=== PATIENT | male | born 1945 | race Caucasian/White ===

== ENCOUNTER 2025-02-21 09:34 | Outpatient (AMB) | payer MEDICARE, SELFPAY ==
--- OUTSIDE RECORDS SUMMARY | 2020-08-24 04:00 | XMS_ITS | Continuity of Care Document ---
Author Name [facility] Organization [facility] Care Team Providers Care Catering Sales Manager Name Role Phone [facility] Unavailable Unavailable Immunizations Combined list of available immunizations from the Department of Defense and Veterans Affairs facilities. Immunization Series Date Given Administered By Site Reaction Lot Number CVX Code Drug Office Inspector Status Comments Source COVID-19 (MODERNA), MRNA, LNP-S, PF, 100 MCG/0.5 ML DOSE 2 2020 207 complet ed MOD; [id number]; 1 [facility] COVID-19 (MODERNA), MRNA, LNP-S, PF, 100 MCG/0.5 ML DOSE 1 2020 207 complet ed MOD; [id number]; 1 [facility]
--- NOTE | 2025-02-21 10:07 | MHC.PC.OV ---
Vital Signs 02/21/25 10:13 Height 5 ft 7 in Weight 207 lb 2 oz BMI 32.4 BP 124/80 Blood Pressure Location Rt brachial Position Sitting Respiration 14 Pulse 71 Pulse Source Pulse Oximeter Temp 97.6 F Temp Source Temporal Artery Scan Pulse Oximetry (%) 97 Oxygen Delivery Method Room Air Intake Visit Reasons: [facility] / Annual PE Intake Note: Raul presents in the office today to establish care. Allergies Seasonal Allergies Allergy (Verified 02/21/25 10:10) Runny Nose Medication List - Last Reconciled 02/21/25 by Alexys Ohara MD No Known Home Meds Tobacco use date assessed: 02/21/25 Fall risk assessment: 1 Fall in past year Last assessed Fall Risk: 02/21/25 Dental Screening Dental Screen Date: 02/21/25 Did you have a dental visit in the last 12 months?: Yes Did you have a dental problem in the last 6 months where you did not have access to dental care?: No Was dental information given to patient?: Patient has dentist HPI [facility] / Annual PE HPI Details New Patient? ?? Prior PCP: [facility] [place].? Recent Physician in in [place] Last office visit/CPE:? Acute issue(s):? R knee Some urinary leakage ?? PMHx:?Arthritis, Heart Murmur. SurgHx:? Tonsils FHx:?Mom: Cataract. SocHx: Nonsmoker. EtOH Socially 1-2 dr bob [facility] Medical History (Updated 02/21/25 @ 10:54 by Armando Zazueta) Arthritis Acid reflux Surgical History (Updated 02/21/25 @ 10:18 by Nati Farris MA) H/O vasectomy History of appendectomy History of tonsillectomy Social History (Updated 02/21/25 @ 10:13 by Nati Farris MA) Housing: House Alcohol intake: current Patient Tobacco Use Status: Never used Tobacco e-Cigarette/Vaping Use: Never Used Second Hand Smoke Exposure: Yes service: Yes ([employer]) Current occupational status: retired Current occupational exposures/hazards: No Cognitive needs: No Hearing needs: No Vision needs: No Questionnaire PHQ-9 Over the last 2 weeks, how often have you been bothered by any of the following problems? 1. Little interest or pleasure in doing things: not at all 2. Feeling down, depressed, or hopeless: not at all 3. Trouble falling or staying asleep, or sleeping too much: not at all 4. Feeling tired or having little energy: not at all 5. Poor appetite or overeating: not at all 6. Feeling bad about yourself - or that you are a failure or have let yourself or your family down: not at all 7. Trouble concentrating on things, such as reading the newspaper or watching television: not at all 8. Moving or speaking so slowly that other people could have noticed. Or the opposite - being so fidgety or restless that you have been moving around a lot more than usual: not at all 9. Thoughts that you would be better off or of hurting yourself in some way: not at all Total score: 0 Depression Screening Interpretation: Negative Depression Screening Done: Yes 78482 - PHQ-9 Billing: Yes Source: Developed by Drs. Henrique Blevins, Lorraine Ruiz, Jun Weiss and colleagues, with an educational laura from [email or web address]. Thrive Questionnaire Date Thrive assessed: 02/21/25 I am a: Patient What is your living situation today?: I have a steady place to live Within the past 12 months, did the food you bought not last and you didn't have the money to get more?: Often true Within the past 12 months, did you worry whether your food would run out before you got money to buy more?: Never true Do you have trouble paying for medicines?: No Do you have trouble getting transportation to medical appointments?: No Do you have trouble paying your heating and electricity bill?: No Do you have trouble taking care of your child, family member or friend?: No Do you have trouble with day-to-day activities such as bathing, preparing meals, shopping, managing finances, etc.?: No Are you currently unemployed and looking for a job?: No Are you interested in more education?: No Please select the resources that you would like help with: None Currently or been in a relationship where the following occur: No concerns reported THRIVE Score: 1 AUDIT C Alcohol Use Questionnaire (AUDIT-C) 1. How often do you have a drink containing alcohol?: 2-3 times a week 2. How many drinks containing alcohol do you have on a typical day when you are drinking?: 1 or 2 3. How often do you have six or more drinks on one occasion?: Never Total Score: 3 ARLENE-7 AMB Questionnaire ARLENE-7 Date ARLENE - 7 assessed: 02/21/25 Feeling nervous, anxious, or on edge: 0 = Not at all Not being able to stop or control worryin = Not at all Worrying too much about different things: 0 = Not at all Trouble relaxin = Not at all Being so restless that it is hard to sit still: 0 = Not at all Becoming easily annoyed or irritable: 0 = Not at all Feeling afraid as if something awful might happen: 0 = Not at all Total ARLENE-7 score (0-4 normal; 5-9 mild; 10-14 moderate; 15-21 severe): 0 Source: Developed by Drs. Henrique Blevins, Lorraine Ruiz, Jun Weiss and colleagues, with an educational laura from [employer]. ARLENE-7 Assessment Billing ARLENE-7 Assessment Tool: ARLENE-7 Assessment 04098 Review of Systems Const Denies chills, Denies fatigue, Denies fever(s), Denies headache(s) and Denies weakness ENT Denies dizziness and Denies headache(s) Card Denies chest pain, Denies lightheadedness, Denies dyspnea and Denies other (Palpitations) Resp Denies cough, Denies dyspnea, Denies wheezing and Denies other ( shortness of breath) Musc Denies numbness and Denies tingling Neuro Denies dizziness, Denies headache(s), Denies numbness, Denies tingling, Denies paresthesias and Denies weakness Psych Denies anxiety and Denies depression Endo Denies fatigue Aller/Immun Denies wheezing Physical exam (Primary Care) Vital Signs: Last Vital Signs Temp 97.6 F 02/21/25 10:13 Pulse 71 02/21/25 10:13 Resp 14 02/21/25 10:13 BP 124/80 02/21/25 10:13 Pulse Ox 97 02/21/25 10:13 Oxygen Delivery Method Room Air 02/21/25 10:13 BMI result Body Mass Index 32.4 Tobacco/Smoking Status: Tobacco use Status Tobacco use date assessed 02/21/25 02/21/25 10:12 Patient Tobacco Use Status Never used Tobacco 02/21/25 10:13 e-Cigarette/Vaping Use Never Used 02/21/25 10:13 PHQ-9: PHQ-9 Score PHQ-9: Total score 0 02/21/25 10:28 Depression Screening Interpretation: Negative Thrive Assessment: Date of Thrive Assessment Date Thrive assessed 02/21/25 02/21/25 10:09 Currently or been in a relationship where the following occur: No concerns reported Const General: no acute distress and well developed Nutritional Appearance: well nourished Orientation/consciousness: patient oriented x3 HENMT Head: Yes normocephalic and Yes atraumatic Eyes General: appearance normal, both eyes and all related structures Pupils: Equal, round and reactive pupils present EOM: EOMs intact bilaterally Resp Effort & Inspection: normal respiratory effort Auscultation: clear to auscultation bilaterally Cardio Rate: regular rate Rhythm: regular rhythm Heart sounds: S1 normal heart sound present, S2 normal heart sound present, no gallops, Murmur heart sound present (Faint ) and no rubs Neuro General: patient oriented x3 and gait normal Cranial nerves: Yes Equal, round and reactive pupils present Psych Affect: normal affect Coding Level of Care Code New Pt Level 3 (38869) Diagnoses Right knee pain M25.561 Urinary leakage R32 Heart murmur R01.1 Laboratory exam ordered as part of routine general medical examination Z00.00 Additional Codes ARLENE-7 Assessment Billing - ARLENE-7 Assessment Tool: ARLENE-7 Assessment 15169 ([id number]) PHQ-9 - 23183 - PHQ-9 Billing: Yes ([id number]) Assessment & Plan Assessment & Plan (1) Right knee pain: Code(s): M25.561 - Pain in right knee Category: Medical Plan: Right knee pain intermittent and exacerbated by cold weather. Likely arthritis Check x-ray Start physical therapy Ice/heat Can try Tylenol or ibuprofen p.r.n. Will follow-up and discuss x-ray and his of the therapy May need referral for injection therapy (2) Urinary leakage: Code(s): R32 - Unspecified urinary incontinence Category: Medical Plan: Check PSA Scheduled voids Trial alfuzosin Will follow-up on the above. May need referral to urology (3) Heart murmur: Code(s): R01.1 - Cardiac murmur, unspecified Category: Medical Plan: Lifelong murmur Stable (4) Laboratory exam ordered as part of routine general medical examination: Code(s): Z00.00 - Encounter for general adult medical examination without abnormal findings Category: Medical Plan: Check lab Orders: Orders Comprehensive [place]. Panel Fast Today Z00.00 - Encounter for general adult medical examination without abnormal findings Prostate Specific Antigen Scr Today Z12.5 - Encounter for screening for malignant neoplasm of prostate Lipid Panel Today Z00.00 - Encounter for general adult medical examination without abnormal findings Microalbumin, Random (w Creat) Today I10 - Essential (primary) hypertension UA CC w/rflx Micro + Cult Today Z00.00 - Encounter for general adult medical examination without abnormal findings PT Evaluation and Treatment Today M25.561 - Pain in right knee Complete Blood Count Auto Diff Today Z00.00 - Encounter for general adult medical examination without abnormal findings TSH reflex Free T4 Today Z00.00 - Encounter for general adult medical examination without abnormal findings XR knee RT 3V Today M25.561 - Pain in right knee Medications: New alfuzosin ER administer after the same meal each day 10 mg PO DAILY 30 tabs 0RF 30 days
[2025-02-21 10:13] VITALS: BP 124/80; PULSE 71; RESP 14; TEMP 36.4; O2SAT 97; BMI 32.4
--- OUTSIDE RECORDS SUMMARY | 2025-02-21 10:15 | XMS_ITS | Clinical Summary ---
Author Organization [employer] Address [address] [place] [address] Care Team Providers Care Workers Compensation Claims Examiner Name Role Phone Unavailable Primary Care Provider Unavailabl e Social History Tobacco Use Types Packs/Day Years Used Date Smoking Tobacco: Never Assessed Sex and Gender Information Value Date Recorded Sex Assigned at Male 05/10/2022 10:23 AM EDT Legal Sex Male 10:23 AM EDT Gender Identity Male 05/10/2022 10:23 AM EDT Sexual Orientation Straight 05/10/2022 10 :23 AM EDT Plan of Treatment Health Maintenance Due Date Last Done Comments Depression Screening 1945 Lipid Panel 1945 Alcohol/Substance Use Screening 1957 Tobacco Screening 1957 DTaP/Tdap/Td Vaccines (1 - Tdap) 1964 Pneumococcal Vaccine: 50+ Ye ars (1 of 1 - PCV) 1995 Zoster Vaccines (1 of 2) 1995 RSV Patients and Pa tients Aged 60 years or older (1 - 1-dose 75+ series) 2020 COVID-19 Vaccine (1 - 2023-2 5 season) 2024 Influenza Vaccine (#1) 2025 HIB Vaccines Aged Out No longer eligi ble based on patient's age to complete this topic HPV Vaccines Aged Out No longer eligi ble based on patient's age to complete this topic Hepatitis A Vaccines Aged Out No long er eligible based on patient's age to complete this topic Hepatitis B Vaccines Aged Out No long er eligible based on patient's age to complete this topic IPV Vaccines Aged Out No longer eligi ble based on patient's age to complete this topic Meningococcal B Vaccine Aged Out No l onger eligible based on patient's age to complete this topic Meningococcal Vaccine Aged Out No nia nesha eligible based on patient's age to complete this topic RSV under 20 months Aged Out No longe r eligible based on patient's age to complete this topic Rotavirus Vaccines Aged Out No longer eligible based on patient's age to complete this topic
--- OUTSIDE RECORDS SUMMARY | 2025-02-21 10:15 | XMS_ITS | Clinical Summary ---
Author Organization [facility] Office of Tray Esquivel MD Address [address] [id number] Phone Care Team Providers Care Seed Corn Production Manager Name Role Phone Unavailable Primary Care Provider Unavailabl e Allergies No known active allergies Medications chlorthalidone (HYGROTON) 25 mg tablet TAKE 2 TABLETS BY MOUTH 1 TIME EACH DAY. 180 tablet 07/18/2024 Active Active Problems Problem Noted Date Diagnosed Date Mitral valve insufficiency 08/10/2023 Overview (08/10/2023): 08/26/2022:Left ventricle cavity size is normal. Left ventricular systolic function is in the normal range with an ejection fraction of 55-60%. No regional LV wall motion abnormalities noted. Left ventricle wall thickness is normal Right ventricle cavity is normal. Right ventricular systolic function is normal. The mitral valve posterior leaflet is mildly prolapsed. Mitral valve demonstrates moderate Regurgitation. Aortic Valve: The aortic valve is trileaflet. The leaflets exhibit normal excursion. Focal calcification of the non-coronary cusp. Assessment & Plan (08/10/2023 3:15 PM EST): Asymptomatic. Moderate mitral regurgitation continue to monitor medically. Repeat 2d echo. Obtain EXT and Calcium score return to clinic 1 year. Abnormal ECG 08/10/2023 Abnormal glucose 08/09/2022 BPH (benign prostatic hyperplasia) 08/09/2022 Cardiac murmur 08/09/2022 Hypercholesterolemia 08/09/2022 Immunizations Name Administration Dates Next Due Zoster recombinant (Shingrix) 19yo and older Surgical History Surgery Date Site/Laterality Comments APPENDECTOMY COLONOSCOPY 04/10/2018 - 05/10/2018 and 7 years ago DENTAL SURGERY Medical History Medical History Date Comments Obesity (BMI 30.0-34.9) Family History Medical History Relation Name Comments Old age Father COPD,mild Mother Relation Name Status Comments Father Mother Social History Tobacco Use Types Packs/Day Years Used Date Smoking Tobacco: Never Smokeless Tobacco: Never Alcohol Use Standard Drinks/Week Comments Yes 0 (1 standard drink = 0.6 oz pur e alcohol) Social Alcohol use Housing Instability Answer Date Recorde d Are you worried that in the next 2 months you may not have stable housing? No 06/11/2024 Food Access & Nutrition Answer Date Rec orded Do you have access to a vari ety of food including fruits and vegetables? Yes 06/11/2024 Access to Healthcare Answer Date Record ed Within the last 3 months, ho w many times did you visit the emergency department for your medical care? 0 06/11/2024 Health Literacy Answer Date Recorded How often do you need to hav e someone help you when you read instructions, pamphlets, or other written material from your doctor or pharmacy? Never 06/11/2024 Caregiver: How often do you need to have someone help you when you read instructions, pamphlets, or other written material from your doctor or pharmacy? Not on file 06/11/2024 Financial Risk Answer Date Recorded How hard is it for you to pa y for the very basics like food, housing, medical care, and air conditioning / heating? Patient declined 06/11/2024 Transportation Answer Date Recorded Has the lack of transportati on kept you from meetings, work, or from getting things needed for daily living? No Has the lack of transportati on kept you from medical appointments or from getting medications? No 06/11/2024 Social Isolation Answer Date Recorded How often do you feel lonely or isolated from th ose around you? Never 06/11/2024 Food Risk Answer Date Recorded Within the past 12 months we worried whether our food would run out before we got money to buy more. Never true 06/11/2024 Within the past 12 months th e food we bought just didn't last and we didn't have money to get more. Never true 06/11/2024 Sex and Gender Information Value Date Recorded Sex Assigned at Not on file Legal Sex Male 12:39 PM EDT Gender Identity Not on file Sexual Orientation Not on file Obstetrics History Last Filed Vital Signs Vital Sign Reading Time Taken Comments Blood Pressure 135/74 06/18/2024 8:37 AM EST Pulse 71 06/18/2024 8:37 AM EST Temperature 36.8 C (98.2 F) 06/18/2024 8:37 AM EST Respiratory Rate 20 06/18/2024 8:37 AM EST Oxygen Saturation 97% 06/18/2024 8:37 AM EST Inhaled Oxygen Concentration - - Weight 94.3 kg (208 lb) 06/18/2024 8:37 AM EST Height 170.2 cm (5' 7 ) 06/18/2024 8:37 AM EST Body Mass Index 32.58 06/18/2024 8:37 AM EST Plan of Treatment Health Maintenance Due Date Last Done Comments DTaP,Tdap,and Td Vaccines (1 - Tdap) 1964 Pneumococcal Vaccine: 50+ Years (1 of 1 - PCV) 1995 RSV Immunization Adult Patients (1 - 1-dose 75+ series) 2020 Hepatitis C Screening 02/02/2022 Zoster Vaccines (2 of 2) 09/25/2022 07/31/2022 COVID-19 Vaccine (1 - 2023-2 5 season) 2024 Depression Screening 07/11/2024 06/11/2024 Medicare Annual Wellness Visit 08/15/2024 08/15/2023 Hypertension/CHF/CAD Annual BMP Blood Test 08/16/2024 08/16/2023, 08/16/2022, 09/14/2021 Influenza Vaccine (#1) 2025 Social Influencers of Health Screening 06/11/2025 06/11/2024 Falls Risk Assessment 06/18/2025 06/18/2024 , 08/16/2022 Cholesterol Screening (Lipid Panel) 08/16/2028 08/16/2023, 08/16/2022, 09/14/2021 HIB Vaccines Aged Out No longer eligi [...] on patient's age to complete this topic MMR Vaccines Aged Out No longer eligi ble based on patient's age to complete this topic Meningococcal ACWY Vaccine Aged Out N o longer eligible based on patient's age to complete this topic Meningococcal B Vaccine Aged Out No l onger eligible based on patient's age to complete this topic RSV Immunization Patients Under 20 months Aged Out No longer eligible b ased on patient's age to complete this topic Varicella Vaccines Aged Out No longer eligible based on patient's age to complete this topic Procedures Procedure Name Priority Date/Time Associated Diagnosis Comments COMPREHENSIVE METABOLIC PANEL Routine 08/16/2023 10:43 AM EST Adult general medical examination LIPID PANEL Routine 08/16/2023 10:43 AM EST Adult general medical examination from Last 3 Months or Most Recently Relevant to Health Maintenance Results * (ABNORMAL) Lipid panel (08/16/2023 10:43 AM EST) Cholesterol 166 <200 mg/dL LAB CHEMISTRY METHOD 08/16/2023 3:[address] [facility] Comment: Cholesterol Risk Factors (NCEP 2004 ATP III update) Desirable: <200 mg/dL Borderline Risk: 200-239 mg/dL High Risk: >239 mg/dL Triglycerides 103 0 - 150 mg/dL LAB CHEMISTRY METHOD 08/16/2023 3:[address] [facility] HDL 31 23 - 92 mg/dL LAB CHEMISTRY METHOD 08/16/2023 3:[address] [facility] LDL Calculated 114(H) <100 mg/dL LAB CHEMISTRY METHOD 08/16/2023 3:[address] [facility] Comment: LDL Cholesterol Risk Factors (NCEP 2004 ATP III update) Desirable for high risk CHD: < 100 mg/dL Desirable for moderate risk CHD (2 or more risk factors): < 130 mg/dL Desirable for low risk CHD (0-1 risk factors): < 160 mg/dL VLDL Cholesterol Chal[place] 20.6 mg/dL LAB CHEMISTRY METHOD 08/16/2023 3:[address] [facility] Blood Venous blood specimen / Unknown Venipuncture / Unknown 08/16/2023 10:43 AM EST 08/16/2023 10:43 AM EST Iris Abraham MD LAB BLOOD ORDERABLES Final Re sult [facility] [address] [place] [address], [place] [phone] * (ABNORMAL) Comprehensive metabolic panel (08/16/2023 10:43 AM EST) Sodium 140 136 - 145 mmol/L LAB CHEMISTRY METHOD 08/16/2023 3:[address] [facility] Potassium 4.3 3.5 - 5.1 mmol/L LAB CHEMISTRY METHOD 08/16/2023 3:[address] [facility] Chloride 103 98 - 107 mmol/L LAB CHEMISTRY METHOD 08/16/2023 3:[address] [facility] CO2 28 21 - 31 mmol/L LAB CHEMISTRY METHOD 08/16/2023 3:[address] [facility] Anion Gap 9 5 - 15 LAB CHEMISTRY METHOD 08/16/2023 3:[address] [facility] Glucose 81 74 - 109 mg/dL LAB CHEMISTRY METHOD 08/16/2023 3:[address] [facility] BUN 24 7 - 25 mg/dL LAB CHEMISTRY METHOD 08/16/2023 3:[address] [facility] Creatinine 1.06 0.70 - 1.30 mg/dL LAB CHEMISTRY METHOD 08/16/2023 3:[address] [facility] eGFR 72 >=60 mL/min/1. 73m2 LAB CHEMISTRY METHOD 08/16/2023 3:[address] [facility] Comment:Calculation based on the Chronic Kidney Disease Epidemiology Collaboration (CKD-EPI) equation refit without adjustment for race. BUN/Creatinine Ratio 22.6(H) 6.0 - 20.0 LAB CHEMISTRY METHOD 08/16/2023 3:[address] [facility] Calcium 9.5 8.6 - 10.3 mg/dL LAB CHEMISTRY METHOD 08/16/2023 3:[address] [facility] AST (SGOT) 21 13 - 39 unit/L LAB CHEMISTRY METHOD 08/16/2023 3:[address] [facility] ALT (SGPT) 22 7 - 52 unit/L LAB CHEMISTRY METHOD 08/16/2023 3:[address] [facility] Alkaline Phosphatase 67 34 - 104 unit/L LAB CHEMISTRY METHOD 08/16/2023 3:[address] [facility] Total Protein 7.0 6.4 - 8.9 g/dL LAB CHEMISTRY METHOD 08/16/2023 3:[address] [facility] Globulin, Total 2.6 1.4 - 3.9 g/dL LAB CHEMISTRY METHOD 08/16/2023 3:[address] [facility] A/G Ratio 1.7 >1.0 LAB CHEMISTRY METHOD 08/16/2023 3:[address] [facility] Total Bilirubin 1.3(H) 0.3 - 1.0 mg/dL LAB CHEMISTRY METHOD 08/16/2023 3:[address] [facility] Albumin 4.4 3.5 - 5.7 g/dL LAB CHEMISTRY METHOD 08/16/2023 3:17 PM [facility] Blood Venous blood specimen / Unknown Venipuncture / Unknown 08/16/2023 10:43 AM EST 08/16/2023 10:43 AM EST us Iris Abraham MD LAB BLOOD ORDERABLES Final Re sult [facility] [address] [place] [address], [place] [phone] from Last 3 Months or Most Recently Relevant to Health Maintenance Insurance [employer] [place]ICARE [place]AGE
== END 2025-02-21 10:56 | disposition home or self-care (01) ==
LOC: HO.HMCFM 09:36
PROVIDERS: PCP Family Medicine; Visit Provider Family Medicine
DX: M25.561 Pain in right knee (principal); R32 Unspecified urinary incontinence; R01.1 Cardiac murmur, unspecified; Z00.00 Encounter for general adult medical examination without abnormal findings

== ENCOUNTER → 2025-02-21 09:34 | Outpatient (BNVA) | payer MEDICARE, SELFPAY | PROVIDERS: PCP Family Medicine; Visit Provider Family Medicine | DX: Z00.00 Encounter for general adult medical examination without abnormal findings (principal); M25.561 Pain in right knee; R32 Unspecified urinary incontinence; R01.1 Cardiac murmur, unspecified | CPT/HCPCS: 96127; 99202 ==

== ENCOUNTER 2025-02-25 06:01 | Outpatient (REF) | payer MEDICARE, SELFPAY ==
--- OUTSIDE RECORDS SUMMARY | 2020-08-24 04:00 | XMS_ITS | Continuity of Care Document ---
Author Name [facility] Organization [facility] Care Team Providers Care Sql Ssis Developer Name Role Phone [facility] Unavailable Unavailable Immunizations Combined list of available immunizations from the Department of Defense and Veterans Affairs facilities. Immunization Series Date Given Administered By Site Reaction Lot Number CVX Code Drug Sales Recruitment Specialist Status Comments Source COVID-19 (MODERNA), MRNA, LNP-S, PF, 100 MCG/0.5 ML DOSE 2 2020 207 complet ed MOD; [id number]; 1 [facility] COVID-19 (MODERNA), MRNA, LNP-S, PF, 100 MCG/0.5 ML DOSE 1 2020 207 complet ed MOD; [id number]; 1 [facility]
--- NOTE | ~2025-02-25 | XR_ITS ---
EXAMINATION: XR KNEE 3 VIEWS RIGHT HISTORY: M25.561 - Pain in right knee COMPARISON: There are no prior studies available for comparison. FINDINGS: Three views of the right knee are submitted. Osseous mineralization is normal. There is no fracture or dislocation. There is moderate narrowing of the medial compartment and mild narrowing of the patellofemoral compartment. There is trace joint effusion. XR/XR knee RT 3V IMPRESSION: Trace joint effusion. Osteoarthritis of the right knee as described. Electronically signed by: Henrique Pérez MD 02/25/2025 08:22 AM EDT
--- OUTSIDE RECORDS SUMMARY | 2025-02-25 06:03 | XMS_ITS | Clinical Summary ---
Author Organization [facility] dical Group Office of Tray Esquivel MD Address [address] [address] Phone Care Team Providers Care Traffic Routing Engineer Name Role Phone Unavailable Primary Care Provider [...] mg/dL LAB CHEMISTRY METHOD 08/16/2023 3:17 PM [facility] Comment: Cholesterol Risk Factors (NCEP 2004 ATP III update) Desirable: <200 mg/dL Borderline Risk: 200-239 mg/dL High Risk: >239 mg/dL Triglycerides 103 0 - 150 mg/dL LAB CHEMISTRY METHOD 08/16/2023 3:17 PM [facility] HDL 31 23 - 92 mg/dL LAB CHEMISTRY METHOD 08/16/2023 3:17 PM [facility] LDL Calculated 114(H) <100 mg/dL LAB CHEMISTRY METHOD 08/16/2023 3:17 PM [facility] Comment: LDL Cholesterol Risk Factors (NCEP 2004 ATP III update) Desirable for high risk CHD: < 100 mg/dL Desirable for moderate risk CHD (2 or more risk factors): < 130 mg/dL Desirable for low risk CHD (0-1 risk factors): < 160 mg/dL VLDL Cholesterol Chalino 20.6 mg/dL LAB CHEMISTRY METHOD 08/16/2023 3:17 PM [facility] Blood Venous blood specimen / Unknown Venipuncture / Unknown 08/16/2023 10:43 AM EST 08/16/2023 10:43 AM EST Iris Abraham MD LAB BLOOD ORDERABLES Final Re sult [facility] [address] [place] [address], [place] [phone] * (ABNORMAL) Comprehensive metabolic panel (08/16/2023 10:43 AM EST) Sodium 140 136 - 145 mmol/L LAB CHEMISTRY METHOD 08/16/2023 3:17 PM [facility] Potassium 4.3 3.5 - 5.1 mmol/L LAB CHEMISTRY METHOD 08/16/2023 3:17 PM [facility] Chloride 103 98 - 107 mmol/L LAB CHEMISTRY METHOD 08/16/2023 3:17 PM [facility] CO2 28 21 - 31 mmol/L LAB CHEMISTRY METHOD 08/16/2023 3:17 PM [facility] Anion Gap 9 5 - 15 LAB CHEMISTRY METHOD 08/16/2023 3:17 PM [facility] Glucose 81 74 - 109 mg/dL LAB CHEMISTRY METHOD 08/16/2023 3:17 PM [facility] BUN 24 7 - 25 mg/dL LAB CHEMISTRY METHOD 08/16/2023 3:17 PM [facility] Creatinine 1.06 0.70 - 1.30 mg/dL LAB CHEMISTRY METHOD 08/16/2023 3:17 PM [facility] eGFR 72 >=60 mL/min/1. 73m2 LAB CHEMISTRY METHOD 08/16/2023 3:17 PM [facility] Comment:Calculation based on the Chronic Kidney Disease Epidemiology Collaboration (CKD-EPI) equation refit without adjustment for race. BUN/Creatinine Ratio 22.6(H) 6.0 - 20.0 LAB CHEMISTRY METHOD 08/16/2023 3:17 PM [facility] Calcium 9.5 8.6 - 10.3 mg/dL LAB CHEMISTRY METHOD 08/16/2023 3:17 PM [facility] AST (SGOT) 21 13 - 39 unit/L LAB CHEMISTRY METHOD 08/16/2023 3:17 PM [facility] ALT (SGPT) 22 7 - 52 unit/L LAB CHEMISTRY METHOD 08/16/2023 3:17 PM [facility] Alkaline Phosphatase 67 34 - 104 unit/L LAB CHEMISTRY METHOD 08/16/2023 3:17 PM [facility] Total Protein 7.0 6.4 - 8.9 g/dL LAB CHEMISTRY METHOD 08/16/2023 3:17 PM [facility] Globulin, Total 2.6 1.4 - 3.9 g/dL LAB CHEMISTRY METHOD 08/16/2023 3:17 PM [facility] A/G Ratio 1.7 >1.0 LAB CHEMISTRY METHOD 08/16/2023 3:17 PM [facility] Total Bilirubin 1.3(H) 0.3 - 1.0 mg/dL LAB CHEMISTRY METHOD 08/16/2023 3:17 PM [facility] Albumin 4.4 3.5 - 5.7 g/dL LAB CHEMISTRY METHOD 08/16/2023 3:[address] [facility] Blood Venous blood specimen / Unknown Venipuncture / Unknown 08/16/2023 10:43 AM EST 08/16/2023 10:43 AM EST us Iris Abraham MD LAB BLOOD ORDERABLES Final Re sult [facility] [address] [place] [address], [place] [phone] from Last 3 Months or Most Recently Relevant to Health Maintenance Insurance [employer] [place]IC[place]
[2025-02-25 06:41] LABS: MANUAL DIFF FLAG NO
[2025-02-25 07:19] LABS: Hematocrit 41.8 % (42.0-52.0); Hemoglobin 14.0 g/dl (14.0-18.0); Imm Gran Abs Auto 0.02 X10*3/uL (0.00-0.03); Imm Gran Pct Auto 0.3 % (0.0-0.4); Lymphocytes Absolute Auto 2.3 X10*3/uL (1.2-4.9); Mean Corpuscular HGB Conc 33.5 g/dl (31.0-36.0); Mean Corpuscular Hemoglobin 30.8 pg (27.0-33.0); Mean Corpuscular Volume 91.9 fL (80.0-98.0); NRBC Abs Auto 0.000 X10*3/uL (0.0-0.012); NRBC Pct Auto 0.0 /100WBC (0.0-0.2); Platelet Count 196 X10*3/uL (160-400); Red Blood Count 4.55 X10*6/uL (4.60-5.80); White Blood Count 6.6 X10*3/uL (4.8-10.8)
[2025-02-25 07:39] LABS: Appearance Urine Clear; Glucose Urine UA Negative (Negative); PH 5.5 (5.0-9.0); Specific Gravity - Urine 1.025 (1.005-1.025)
[2025-02-25 08:07] LABS: Microalbum/Creatinine Ratio Ur 3.1 ug/mg cr (<30)
[2025-02-25 08:09] LABS: Alanine Aminotransferase 27 U/L (0-40); Albumin Level 3.9 g/dL (3.5-5.0); Alkaline Phosphatase 73 U/L (39-117); Anion Gap 13 (12-20); Aspartate Amino Transferase 31 U/L (5-37); Blood Urea Nitrogen 23 mg/dL (9-16); Calcium 8.9 mg/dL (8.4-10.2); Carbon Dioxide 23 mmol/L (22-29); Chloride 110 mmol/L (96-108); Cholesterol 129 mg/dL (<200); Estimated Glomerular Filt Rate > 60; HDL Cholesterol 23 mg/dL (>40); Potassium 3.9 mmol/L (3.3-5.1); Sodium 142 mmol/L (135-145); Total Protein 6.4 g/dL (6.5-8.0); Triglycerides 77 mg/dL (<150)
== END 2025-02-25 06:02 | disposition home or self-care (01) ==
LOC: HO.XRAY 06:01
PROVIDERS: PCP Family Medicine; Visit Provider Family Medicine
DX: Z00.00 Encounter for general adult medical examination without abnormal findings (principal); Z12.5 Encounter for screening for malignant neoplasm of prostate; I10 Essential (primary) hypertension; M25.561 Pain in right knee
CPT/HCPCS: 36415; 73562; 80053; 80061; 81003; 82043; 82570; 84153; 84443; 85025

== ENCOUNTER → 2025-02-25 06:49 | Outpatient (BNV) | payer MEDICARE, SELFPAY | PROVIDERS: PCP Family Medicine; Visit Provider Radiology Diagnostic Radiology | DX: M25.461 Effusion, right knee (principal) | CPT/HCPCS: 73562 ==

== ENCOUNTER 2025-04-16 07:00 | Outpatient (RCR) | payer MEDICARE, SELFPAY ==
--- NOTE | 2025-03-27 11:22 | MHC.PT.EP ---
[facility] [place] [facility] [place] Office [place] Office [address] Asiya Bunch [address] [phone] F: [phone] F: [phone] F: [phone] F: [phone] Physical Therapy Plan of Care Date of Evaluation: 03/27/25 Date of Surgery: Diagnosis: RIGHT KNEE PAIN Assessment: 80 YO MALE REF TO PT FOR Rt KNEE PAIN- PROGR x 2 YRS, DENIES TRAUMA, OA ON XRAY. HE AMB W/O ANY ASST DEVICE, BUT DOES OWN A CANE FOR WINTER MONTHS-> COMPENSATORY GAIT W INCR LAT TRUNK Wt SHIFT. OBJECTIVE FINDINGS: LIMITED TRUNK/ HIP/KNEE AROM, MEDIAL Rt KNEE PAIN, DECR HUGO TO Wt BEARING TASKS/ BENDING, AND ALTERED SQUAT MECH/ STAIR NAVIGATION. THE Pt IS MOTIVATED FOR PT AND AGREES W PT POC, READY TO PROCEED. Frequency and Duration: The patient will be seen 2 x WK x 4 WKS Short Term Goals: DECR Rt KNEE PAIN TO 2-3/10 W REG ADLs INCR AROM MANUEL KNEES-> FULL TERMINAL EXTEN IMPROVE HIP / LEs FLEXIBILITY/ TRUNK AROM ADDRESS ECCENTRIC QUAD STRENGTH-> MORE EFFICIENT TECHN W STAIRS Needle Valve Operator Goals: Pt INDEP HEP AND SELF SX MGMT TECHN Pt DEMON EFFICIENT FUNCTIONAL SQUAT/ BODY MECH W 2:2 SIMUL TASKS IMPROVED LEFI, AT EVAL 51/80 IMPROVED TUG, AT EVAL, 13 SEC Treatment Plan: Modalities to reduce pain, spasms and effusion. Manual therapy to restore motion and function. Therapeutic exercise to improve strength and flexibility. Neuromuscular re-education for posture and balance. Therapeutic activities to return to functional activities of daily living. Electronically signed by: ÁNGEL SAUNDERS,PT Please sign and return to therapist. Thank you for your referral.
--- NOTE | 2025-04-16 08:43 | MHC.PT.DC ---
[facility] [place] Office [place] Office [place] Office [address] Asiya Bunch 140 [facility] [phone] F: [phone] F: [phone] F: [phone] F: [phone] Physical Therapy Discharge Report Diagnosis: RIGHT KNEE PAIN Date of Surgery: Date of Evaluation: 03/27/25 Date of Discharge: 04/16/25 Treatments to Date: 7 Cancellations to Date: 0 No Shows to Date: 0 Discharge Status: Achieved Goals Improved Function Independent with HEP Patient Elected to Stop Discharge Summary: BRITTANY FEELS READY FOR DISCHARGE FROM PT AND CONT W HIS HEP-HE HAS IMPROVED LEs FLEXIB AND STRENGTH, HE IS MOTIVATED W HIS HEP AND IMPROVED FUNCTIONAL MOBILITY TOLERANCE- HE HAS MET HIS PT GOALS, TUG 10 SEC, IMPROVED KNEE ROM AND LEs FLEXIB, SIGNIF DECR KNEE PAIN...READY FOR D/C AND SELF SX MGMT; HIS LEFI SCORE AT D/C IS 60/80, ANDF AT EVAL , 51/80. Electronically signed by: ÁNGEL SAUNDERS,PT Please sign and return to therapist. Thank you for your referral.
== END 2025-04-16 08:52 | disposition home or self-care (01) ==
LOC: HO.PT 07:00
PROVIDERS: PCP Family Medicine; Visit Provider Family Medicine
DX: M25.561 Pain in right knee (principal)
CPT/HCPCS: 97110; 97162; 97530

== ENCOUNTER 2025-05-09 15:04 | Outpatient (AMB) | payer MEDICARE, SELFPAY ==
--- NOTE | 2025-05-09 15:13 | MHC.PC.OV ---
Vital Signs 05/09/25 15:19 05/09/25 16:00 Height 5 ft 7 in Weight 212 lb 6 oz BMI 33.3 BP 140/72 H 134/70 Blood Pressure Location Rt brachial Position Sitting Respiration 14 Pulse 61 Pulse Source Pulse Oximeter Temp 97.2 F Temp Source Temporal Artery Scan Pulse Oximetry (%) 95 Oxygen Delivery Method Room Air Intake Visit Reasons: CPE with f/u labs and health maint. Intake Note: Raul presents in the office today for his annual physical and to review his latest lab results. Patient stopped Alfuzosin about 5 days ago. Was not sure if he was to continue as he believed he was taking it on a trial basis. Allergies Seasonal Allergies Allergy (Verified 05/09/25 15:15) Runny Nose Tobacco use date assessed: 05/09/25 Fall risk assessment: No Falls in past year Last assessed Fall Risk: 05/09/25 Dental Screening Dental Screen Date: 05/09/25 Did you have a dental visit in the last 12 months?: Yes Did you have a dental problem in the last 6 months where you did not have access to dental care?: No Was dental information given to patient?: Patient has dentist HPI HPI Comments History of Present Illness Details This is an 80-year-old male presenting for a physical exam. Patient requests refill on alfuzosin 10 mg daily which was prescribed for urinary leakage. Patient states that symptoms resolved entirely on the medication. PSA normal. He is deferring referral to Urology since symptoms resolved and he is going to [place] for the winter Patient reports he had a Tdap vaccine when his granddaughter was born a few years ago. We discussed other vaccine recommendations. He is going to get the high-dose flu vaccine at the pharmacy. Colon cancer screening was discontinued in his mid to late 70s. Dental exam is UTD. Eye exam is UTD. Sees dermatology in [place] for skin exams annually. Patient did physical therapy for his right knee pain, and this improved. Defers further interventions at this time. Reviewed lab results with patient. ROS: Constitutional: No unexplained weight loss, fever, chills, fatigue or night sweats. Eyes: No vision changes, blurry vision, double vision, eye pain, eye redness, eye discharge. ENT: No hearing loss, sneezing, congestion, runny nose or sore throat. Respiratory: No shortness of breath, cough or sputum production. Cardiovascular: No chest pain, chest pressure or chest discomfort. No palpitations or pedal edema. Gastrointestinal: No anorexia, nausea, vomiting or diarrhea. No abdominal pain or blood in stool. Genitourinary: No dysuria, hematuria, urinary frequency. Neurologic: No headache, dizziness, syncope, unilateral weakness, ataxia, numbness or tingling in the extremities. Musculoskeletal: See HPI Hematologic/Lymphatics: No bleeding or bruising. No painful lymph nodes. Skin: No rash . No itching. Endocrine: No cold or heat intolerance. No polyuria or polydipsia. Psychiatric: No depression or anxiety. No SI/HI. Physical exam: Constitutional: Alert, in no distress. Head: Normocephalic. Eyes: Pupils are equal, round and reactive to light. Extraocular muscles intact. Ear, Nose and Throat: Canals clear. TMs normal. Normal nasal mucosa. No nasal discharge. No oral lesions. Neck: Supple, Full range of motion. No lymphadenopathy. No palpable thyroid masses. Respiratory: Clear to auscultation. Cardiovascular: S1 S2 regular. Faint murmur. No carotid bruits. Gastrointestinal: Abdomen soft, non-tender, non-distended. Normal bowel sounds. No palpable masses. Genitourinary: No costovertebral angle tenderness. Neurologic: No focal neurological deficits. Symmetric patellar reflexes. Moves all extremities spontaneously. Sensation intact bilaterally. Skin: No rashes Musculoskeletal: No gross deformities. Extremities: Warm and well perfused. No clubbing, cyanosis or edema. Intact peripheral pulses bilaterally. Psychiatric: Normal mood and affect [facility] Medical History (Updated 05/10/25 @ 10:23 by MESERET Flowers) Routine physical examination Arthritis Acid reflux Surgical History (Updated 02/21/25 @ 10:18 by Nati Farris MA) H/O vasectomy History of appendectomy History of tonsillectomy Social History (Updated 05/09/25 @ 15:18 by Nati Farris CMA) Housing: House Alcohol intake: current Patient Tobacco Use Status: Never used Tobacco e-Cigarette/Vaping Use: Never Used Second Hand Smoke Exposure: Yes service: Yes ([employer]) Current occupational status: retired Current occupational exposures/hazards: No Cognitive needs: No Hearing needs: No Vision needs: No Questionnaire PHQ-9 Over the last 2 weeks, how often have you been bothered by any of the following problems? 1. Little interest or pleasure in doing things: not at all 2. Feeling down, depressed, or hopeless: not at all 3. Trouble falling or staying asleep, or sleeping too much: not at all 4. Feeling tired or having little energy: not at all 5. Poor appetite or overeating: not at all 6. Feeling bad about yourself - or that you are a failure or have let yourself or your family down: not at all 7. Trouble concentrating on things, such as reading the newspaper or watching television: not at all 8. Moving or speaking so slowly that other people could have noticed. Or the opposite - being so fidgety or restless that you have been moving around a lot more than usual: not at all 9. Thoughts that you would be better off or of hurting yourself in some way: not at all Total score: 0 Depression Screening Interpretation: Negative Depression Screening Done: Yes 75665 - PHQ-9 Billing: Yes Source: Developed by Drs. Henrique Blevins, Lorraine Ruiz, Jun Weiss and colleagues, with an educational laura from [employer]. Thrive Questionnaire Date Thrive assessed: 05/09/25 I am a: Patient What is your living situation today?: I have a steady place to live Within the past 12 months, did the food you bought not last and you didn't have the money to get more?: Often true Within the past 12 months, did you worry whether your food would run out before you got money to buy more?: Never true Do you have trouble paying for medicines?: No Do you have trouble getting transportation to medical appointments?: No Do you have trouble paying your heating and electricity bill?: No Do you have trouble taking care of your child, family member or friend?: No Do you have trouble with day-to-day activities such as bathing, preparing meals, shopping, managing finances, etc.?: No Are you currently unemployed and looking for a job?: No Are you interested in more education?: No Please select the resources that you would like help with: None Currently or been in a relationship where the following occur: No concerns reported THRIVE Score: 1 AUDIT C Alcohol Use Questionnaire (AUDIT-C) 1. How often do you have a drink containing alcohol?: Monthly or less 2. How many drinks containing alcohol do you have on a typical day when you are drinking?: 1 or 2 3. How often do you have six or more drinks on one occasion?: Never Total Score: 1 ARLENE-7 AMB Questionnaire ARLENE-7 Date ARLENE - 7 assessed: 05/09/25 Feeling nervous, anxious, or on edge: 0 = Not at all Not being able to stop or control worryin = Not at all Worrying too much about different things: 0 = Not at all Trouble relaxin = Not at all Being so restless that it is hard to sit still: 0 = Not at all Becoming easily annoyed or irritable: 0 = Not at all Feeling afraid as if something awful might happen: 0 = Not at all Total ARLENE-7 score (0-4 normal; 5-9 mild; 10-14 moderate; 15-21 severe): 0 Source: Developed by Drs. Henrique Blevins, Lorraine Ruiz, Jun Weiss and colleagues, with an educational laura from [employer]. ARLENE-7 Assessment Billing ARLENE-7 Assessment Tool: ARLENE-7 Assessment 65796 Physical exam (Primary Care) Vital Signs: Last Vital Signs Temp 97.2 F 05/09/25 15:19 Pulse 61 05/09/25 15:19 Resp 14 05/09/25 15:19 BP 134/70 05/09/25 16:00 Pulse Ox 95 05/09/25 15:19 Oxygen Delivery Method Room Air 05/09/25 15:19 BMI result Body Mass Index 33.3 Tobacco/Smoking Status: Tobacco use Status Tobacco use date assessed 05/09/25 05/09/25 15:22 Patient Tobacco Use Status Never used Tobacco 05/09/25 15:18 e-Cigarette/Vaping Use Never Used 05/09/25 15:18 PHQ-9: PHQ-9 Score PHQ-9: Total score 0 05/09/25 15:53 Depression Screening Interpretation: Negative Thrive Assessment: Date of Thrive Assessment Date Thrive assessed 05/09/25 05/09/25 15:22 Currently or been in a relationship where the following occur: No concerns reported Coding Level of Care Code Est Pt Prev Care >65y(67627) Diagnoses Routine physical examination Z00.00 Heart murmur R01.1 Chronic pain of right knee M25.561; G89.29 Chronicity: chronic Urinary incontinence, unspecified type R32 Urinary Incontinence type: unspecified incontinence Additional Codes ARLENE-7 Assessment Billing - ARLENE-7 Assessment Tool: ARLENE-7 Assessment 83782 ([id number]) PHQ-9 - 64765 - PHQ-9 Billing: Yes ([id number]) Assessment & Plan Assessment & Plan (1) Routine physical examination: Code(s): Z00.00 - Encounter for general adult medical examination without abnormal findings Category: Medical Plan: Patient is seen today for a routine physical. As part of this visit we reviewed the following issues, which are considered and essential part of preventative health in this age group: - Discussed Prostate cancer screening - Blood pressure screening - Cholesterol screening - Nutritional and exercise counseling - Counseling of injury prevention including fire prevention, smoke alarms and seat belt usage - Screening for depression - Education about skin cancer - Recommendations about immunizations - Recommendation of an eye exam - Screening for substance abuse (2) Heart murmur: Code(s): R01.1 - Cardiac murmur, unspecified Category: Medical Plan: Lifelong murmur. Monitor. No concerning symptoms. (3) Right knee pain: Code(s): M25.561 - Pain in right knee Category: Medical Qualifiers: Chronicity: chronic Qualified Code(s): M25.561 - Pain in right knee; G89.29 - Other chronic pain Plan: Stable. Patient declines further interventions at this time. (4) Urinary leakage: Code(s): R32 - Unspecified urinary incontinence Category: Medical Qualifiers: Urinary Incontinence type: unspecified incontinence Qualified Code(s): R32 - Unspecified urinary incontinence Plan: PSA normal. Symptoms resolved on alfuzosin ER 10 mg. Refilled. Defers urology referral at this time. Plan Schedule physical in 1 year. Return sooner as needed. Medications: Refilled alfuzosin ER administer after the same meal each day 10 mg PO DAILY 90 tabs 1RF 30 days
[2025-05-09 15:19] VITALS: BP 140/72; PULSE 61; RESP 14; TEMP 36.2; O2SAT 95; BMI 33.3
[2025-05-09 16:00] VITALS: BP 134/70
--- OUTSIDE RECORDS SUMMARY | 2025-05-09 17:54 | XMS_ITS | Encounter Summary ---
Author Organization [facility] Address [address] [place] [address] Care Team Providers Care Hair And Makeup Designer Name Role Phone Unavailable Primary Care Provider Unavailabl e Encounter Details Date Type Department Care Team (Latest Contact Info) Description 11/16/2018 Abstract [facility] CONVERSIONS Dental, Provider, DDS Social History Tobacco Use Types Packs/Day Years Used Date Smoking Tobacco: Never Assessed Sex and Gender Information Value Date Recorded Sex Assigned at Male 05/10/2022 10:23 AM EDT Legal Sex Male 10:23 AM EDT Gender Identity Male 05/10/2022 10:23 AM EDT Sexual Orientation Straight 05/10/2022 10 :23 AM EDT documented as of this encounter Plan of Treatment Not on file documented as of this encounter Visit Diagnoses Not on filedocumented in this encounter
--- OUTSIDE RECORDS SUMMARY | 2025-05-09 17:54 | XMS_ITS | Clinical Summary ---
Author Organization [facility] dical Group Office of Tray Esquivel MD Address [address] [address] Phone Care Team Providers Care Phys Ther Name Role Phone Unavailable Primary Care Provider [...] 08/09/2022 Cardiac murmur 08/09/2022 Hypercholesterolemia 08/09/2022 Immunizations Immunization Administration Dates Next Due Zoster recombinant (Shingrix) [...] Patients (1 - 1-dose 75+ series) 2020 Zoster Vaccines (2 of 2) 09/25/2022 07/31/2022 Depression Screening 07/11/2024 06/11/2024 Medicare Annual Wellness Visit 08/15/2024 08/15/2023 COVID-19 Vaccine (1 - 2023-2 5 season) 2025 Influenza Vaccine (#1) 2025 Social Influencers of [...] Procedure Name Priority Date/Time Associated Diagnosis Comments LIPID PANEL Routine 08/16/2023 10:43 AM EST Adult general medical examination from Last 3 Months or Most Recently Relevant to Health Maintenance Results * (ABNORMAL) Lipid panel (08/16/2023 10:43 AM EST) Cholesterol 166 <200 mg/dL LAB CHEMISTRY METHOD 08/16/2023 3:17 PM [facility] Comment: Cholesterol Risk Factors (NCEP 2004 ATP III update) Desirable: <200 mg/dL Borderline Risk: 200-239 mg/dL High Risk: >239 mg/dL Triglycerides 103 0 - 150 mg/dL LAB CHEMISTRY METHOD 08/16/2023 3:17 PM [facility] HDL 31 23 - 92 mg/dL LAB CHEMISTRY METHOD 08/16/2023 3:17 PM [facility] LDL Calculated 114(H) <100 mg/dL LAB CHEMISTRY METHOD 08/16/2023 3:17 PM [facility] Comment: LDL Cholesterol Risk Factors (NCEP 2004 ATP III update) Desirable for high risk CHD: < 100 mg/dL Desirable for moderate risk CHD (2 or more risk factors): < 130 mg/dL Desirable for low risk CHD (0-1 risk factors): < 160 mg/dL VLDL Cholesterol Chalino 20.6 mg/dL LAB CHEMISTRY METHOD 08/16/2023 3:17 PM [facility] Blood Venous blood specimen / Unknown Venipuncture / Unknown 08/16/2023 10:43 AM EST 08/16/2023 10:43 AM EST us Iris Abraham MD LAB BLOOD ORDERABLES Final Re sult [facility] [address] [place] [address], [place] [phone] from Last 3 Months or Most Recently Relevant to Health Maintenance Insurance [employer] [place]
--- OUTSIDE RECORDS SUMMARY | 2025-05-09 17:54 | XMS_ITS | Clinical Summary ---
Author Organization [employer] Address [address] [place] [address] Care Team Providers Care Yarn Examiner Name Role Phone Unavailable Primary Care [...] 5 season) 2025 Influenza Vaccine (#1) 2025 HIB Vaccines Aged [...]
== END 2025-05-09 16:06 | disposition home or self-care (01) ==
LOC: HO.HMCFM 15:05
PROVIDERS: PCP Family Medicine; Visit Provider Physician Assistant Medical
DX: Z00.00 Encounter for general adult medical examination without abnormal findings (principal); R01.1 Cardiac murmur, unspecified; M25.561 Pain in right knee; G89.29 Other chronic pain; R32 Unspecified urinary incontinence

== ENCOUNTER → 2025-05-09 15:04 | Outpatient (BNVA) | payer MEDICARE, SELFPAY | PROVIDERS: PCP Family Medicine; Visit Provider Physician Assistant Medical | DX: Z00.00 Encounter for general adult medical examination without abnormal findings (principal); R01.1 Cardiac murmur, unspecified; M25.561 Pain in right knee; R32 Unspecified urinary incontinence; G89.29 Other chronic pain | CPT/HCPCS: 96127; 99397 ==